=== PATIENT | female | born 1965 | race Caucasian/White ===

== ENCOUNTER 2021-04-05 10:31 | Emergency (ER) | payer OTHER, SELFPAY ==
--- NOTE | ~2021-04-05 | CT_ITS ---
EXAMINATION: CT abdomen pelvis wo con DATE: 04/05/2021 12:30 INDICATION: Right suprapubic pain. TECHNIQUE: Computed tomography (CT) of the abdomen and pelvis was performed without intravenous contr ast. Automated exposure control and iterative reconstruction technique were employed. The dose-length product was 1132.63 mGy-cm. COMPARISON: None. FINDINGS: The visualized portions of the lung bases are clear without pneumonia or pleural effusion. The heart size is normal. No pericardial effusion. The liver and spleen are normal. There are changes of cholecystectomy. The pancreas and right adrenal gland are normal. There is a 10 mm mass in left a drenal gland measuring low-attenuation, consistent with an adenoma. The kidneys are normal. There is no urolithiasis. There are bilateral tubal ligation clips. There are no dilated loops of bowel. The a ppendix is normal. There are no pathologically enlarged lymph nodes. There is no free intraperitoneal fluid. There is mild thoracolumbar spondylosis. IMPRESSION: 1. No etiology for the patient's symptoms. Reviewed, dictated and finalized at location A.
[2021-04-05 11:17] VITALS: BP 138/62; PULSE 90; RESP 16; TEMP 36.4; O2SAT 98
--- NOTE | 2021-04-05 11:23 | ED.GENADULT ---
HPI - General Adult General Chief complaint: Extremity Injury, Lower Stated complaint: R Groin Pain Time Seen by Provider: 04/05/21 11:19 History of Present Illness HPI narrative: Patient is a 55-year-old female who comes to the ED today complaining of pain in right groin/hip area that started yesterday. Patient reports yesterday she was getting up and felt a sudden sharp pain in this area. Is been fairly constant since then. It is made worse whenever she is weightbearing. It is nonradiating. She does not feel a bulge in this area. There is no overlying rash or skin changes. No numbness or tingling. No lower extremity edema. No previous history of similar symptoms. No other symptoms or concerns. Related Data Allergies Allergy/AdvReac Type Severity Reaction Status Date / Time No Known Allergies Allergy Unverified 05/14/19 09:48 Review of Systems Constitutional: Constitutional: Reports as per HPI, Denies fever(s), Denies night sweats and Denies weakness Cardiovascular: Cardiovascular: Denies chest pain, Denies edema, Denies leg edema, Denies dyspnea and Denies orthopnea Respiratory: Respiratory: Denies cough and Denies dyspnea Gastrointestinal: Gastrointestinal: Denies abdominal pain, Denies constipation, Denies diarrhea, Denies nausea and Denies vomiting Comments: See HPI Musculoskeletal: Musculoskeletal: Denies abnormal gait, Denies back pain, Denies numbness and Denies tingling Neurologic: Denies Abnormal speech present, Denies abnormal gait, Denies numbness, Denies tingling and Denies weakness Psychiatric: Psychiatric: Denies homicidal ideation and Denies suicidal ideation Exam Const: General: cooperative, healthy appearing, comfortable, no acute distress, well developed, alert, awake and Physically active Orientation/consciousness: patient oriented x3 Other: Pleasant, well-appearing HENMT: Head: normal to inspection, normocephalic and atraumatic Ears: external ears normal General nose exam: Normal external nose present Eyes: Pupils: Equal, round and reactive pupils present EOM: EOMs intact bilaterally Neck: Neck: normal visual inspection Chest: Chest palpation & inspection: normal inspection of the chest and no tenderness Resp: Effort & Inspection: normal respiratory effort and able to speak in complete sentences Auscultation: clear to auscultation bilaterally Cardio: Rate: regular rate Rhythm: regular rhythm GI: Inspection: normal to inspection GI Palp: Yes abdominal tenderness Other: Tender to palpate over right side suprapubic region. No right lower quadrant tenderness. No tenderness over McBurney's point. : General: Yes no CVA tenderness Back/Spine/Pelvis: Back: no CVA tenderness Skin: General skin exam: normal color and no rashes or lesions noted Lesions: no lesions Neuro: General: patient oriented x3, no focal motor deficits and CN's II-XI intact bilaterally Cranial nerves: Yes Equal, round and reactive pupils present Speech: No Abnormal speech present Extrem: General: normal to inspection and full ROM Other: Full range of motion right lower extremity in all planes. Neurovascular intact throughout. Normal gait. Psych: Appearance: grossly normal and well kempt Mental Status: mental status grossly normal Speech and movement: Normal speech and movement present Affect: normal affect Thought process: Normal thought process present Course Course Emergency Course: Exam consistent with muscular pain. CT done per patient's request which was unremarkable. Urinalysis also done which was unremarkable. Vital Signs Vital signs: Vital Signs Temperature 36.4 C L 04/05/21 11:17 Pulse Rate 90 04/05/21 11:17 Respiratory Rate 16 04/05/21 11:17 Blood Pressure 138/62 04/05/21 11:17 Pulse Oximetry 98 04/05/21 11:17 Temperature 36.4 C L 04/05/21 11:17 Pulse Rate 90 04/05/21 11:17 Respiratory Rate 16 04/05/21 11:17 Blood Pressure 138/62 04/05/21 11:17 Pulse Oximetry
[2021-04-05] MEDS: KETOROLAC 30 MG/ML VIAL (*BKC) IM (12:17)
[2021-04-05 12:43] LABS: Add Urine Microscopic? NO; Appearance Urine Clear (Clear); Bilirubin Urine Negative (Negative); Blood Urine Negative (Negative); Color Urine Straw (Yellow); Glucose Urine UA Negative (Negative); Ketones Urine Negative (Negative); Leukocyte Esterase Ur Negative LEU/UL (Negative); Nitrate Urine Negative (Negative); Protein Urine Negative (Negative); Specific Grav Ur 1.009 (1.001-1.035); Urobilinogen Urine Negative mg/dL (<2.0)
[2021-04-05 13:42] VITALS: BP 140/84; PULSE 69; RESP 16; O2SAT 99
== END 2021-04-05 13:43 | disposition home or self-care (01) ==
PROVIDERS: Physician Assistant Medical; Emergency Provider Emergency Medicine; PCP Family Medicine
DX: R10.30 Lower abdominal pain, unspecified (principal)
CPT/HCPCS: 74176; 81003; 96372; 99284; J1885

== ENCOUNTER 2021-07-24 09:00 | Outpatient (CLI) | payer OTHER, SELFPAY ==
--- NOTE | 2021-07-24 12:00 | NEURO_ITS ---
Impression: # Complains of pain and numbness of right thumb and forearm. # Normal nerve conduction study. # No Carpal Tunnel Syndrome or ulnar neuropathy. # Normal needle/EMG exam. Nerve Conduction Studies Anti Sensory Summary Table Stim Site NR Peak (ms) P-T Amp (?V) Site1 Site2 Delta-P (ms) Dist (cm) Karel (m/s) Right Median Anti Sensory (2-3nd Digit) Wrist 2.7 23.1 Wrist 2-3nd Digit 2.7 14.0 52 Wrist 2.5 53.6 Wrist 2-3nd Digit 2.7 14.0 52 Right Radial Anti Sensory (Base 1st Digit) Wrist 2.3 16.4 Wrist Base 1st Digit 2.3 0.0 Right Ulnar Anti Sensory (5th Digit) Wrist 2.1 15.4 Wrist 5th Digit 2.1 14.0 67 Motor Summary Table Stim Site NR Onset (ms) O-P Amp (mV) Site1 Site2 Delta-0 (ms) Dist (cm) Karel (m/s) Right Median Motor (Abd Poll Brev) Wrist 2.8 5.0 Elbow Wrist 4.5 26.0 58 Elbow 7.3 3.1 Right Ulnar Motor (Abd Dig Minimi) Wrist 2.1 7.0 A Elbow Wrist 4.6 28.0 61 A Elbow 6.7 6.4 F Wave Studies NR F-Lat (ms) L-R F-Lat (ms) Right Median (Mrkrs) (Abd Poll Brev) 26.14 Right Ulnar (Mrkrs) (Abd Dig Min) 24.92 EMG Side Muscle Nerve Root Ins Act Fibs Amp Dur Recrt Comment Right 1stDorInt Ulnar C8-T1 Nml Nml Nml Nml Nml Right Ext Indicis Radial (Post Int) C7-8 Nml Nml Nml Nml Nml Right Ext Digitorum Radial (Post Int) C7-8 Nml Nml Nml Nml Nml Right BrachioRad Radial C5-6 Nml Nml Nml Nml Nml Right PronatorTeres Median C6-7 Nml Nml Nml Nml Nml Right Abd Poll Brev Median C8-T1 Nml Nml Nml Nml Nml MTDD
== END 2021-07-24 09:01 | disposition home or self-care (01) ==
PROVIDERS: PCP Family Medicine; Visit Provider Physician Assistant Surgical
DX: M79.641 Pain in right hand (principal)
CPT/HCPCS: 95886; 95909

== ENCOUNTER → 2022-10-24 16:03 | Outpatient (CLI) | payer OTHER, SELFPAY ==
--- NOTE | ~2022-10-24 | US_ITS ---
EXAMINATION: US carotid duplex BI DATE: 10/24/2022 16:35 INDICATION: Subjective visual disturbance, speech-language deficit, vertigo and disturbance of skin s ensation. TECHNIQUE: Grayscale, color Doppler, and pulsed Doppler images of the cervical carotid arteries were obtained. The degree of vessel stenosis is placed in one of the following categories: normal, <50%, 5 0-69%, >=70% but less than near-occlusion, near-occlusion, or total occlusion. Note that percent sten osis relative to normal distal artery lumen diameter is indirectly measured from velocity measurement s as described by Alexander, et al. Radiology 2003; 229:340-346. COMPARISON: None. FINDINGS: RIGHT: The right common carotid artery (CCA) peak systolic velocity (PSV) is 102 cm/s. The right internal ca rotid artery (ICA) PSV is 100 cm/s. The right ICA end-diastolic velocity (EDV) is 40 cm/s. The right ICA/CCA PSV ratio is 1.6. Grayscale and color Doppler images yield an estimate of <50% diameter reduc tion from plaque in the ICA. The external carotid artery (ECA) PSV is 73 cm/s. There is antegrade arnaud w in the right vertebral artery. LEFT: The left CCA PSV is 142 cm/s. The left ICA PSV is 102 cm/s. The left ICA EDV is 29 cm/s. The left ICA /CCA PSV ratio is 1.2. Grayscale and color Doppler images yield an estimate of <50% diameter reductio n from plaque in the ICA. The ECA PSV is 69 cm/s. There is antegrade flow in the left vertebral arter y. IMPRESSION: 1. <50% stenosis in the right internal carotid artery. 2. <50% stenosis in the left internal carotid artery. Reviewed, dictated and finalized at location A. [employer]
== END ==
PROVIDERS: PCP Family Medicine; Visit Provider Specialist
DX: I25.10 Atherosclerotic heart disease of native coronary artery without angina pectoris (principal); E66.01 Morbid (severe) obesity due to excess calories; I65.29 Occlusion and stenosis of unspecified carotid artery
CPT/HCPCS: 93880

== ENCOUNTER 2024-03-05 15:14 | Outpatient (CLI) | payer OTHER, SELFPAY ==
--- NOTE | ~2024-03-05 | CT_ITS ---
EXAMINATION:CT lung screening DATE: 03/05/2024 15:48 INDICATION: Nicotine dependence, cigarettes, uncomplicated. Current smoker with 30 pack year history. TECHNIQUE: Computed tomography (CT) of the chest was performed without intravenous contrast. Automate d exposure control and iterative reconstruction technique were employed. The dose-length product (DLP ) was 238.78 mGy-cm. COMPARISON: CT abdomen and pelvis 04/05/2021 FINDINGS: There is mild atelectasis bilaterally. No pleural effusion. No pleural effusion. The heart size is normal. There are coronary artery calcifications. No pericardial effusion. There is a small s liding hiatal hernia. There is severe thoracic spondylosis. There is mild chronic anterior wedging of T6 vertebral body. IMPRESSION: 1. Lung-RADS category 1: Negative. Continue annual screening with noncontrast low-dose chest CT in 12 months. Reviewed, dictated and finalized at location E. IMPRESSION: 1. Lung-RADS category 1: Negative. Continue annual screening with noncontrast l ow-dose chest CT in 12 months.
--- NOTE | ~2024-03-05 | CT_ITS ---
EXAMINATION: CT abdomen pelvis w con DATE: 03/05/2024 15:49 INDICATION: Pelvic and perineal pain. TECHNIQUE: Computed tomography (CT) of the abdomen and pelvis was performed with 100 mL Omnipaque 350 intravenous contrast. Automated exposure control and iterative reconstruction technique were employe d. The dose-length product was 1067.10 mGy-cm. COMPARISON: CT abdomen and pelvis 04/05/2021 FINDINGS: The visualized portions of the lung bases demonstrate mild atelectasis. No pleural effusion . The heart size is normal. No pericardial effusion. There is a small sliding hiatal hernia. The live r and spleen are normal. There are changes of cholecystectomy. The pancreas and right adrenal gland a re normal. There is chronic thickening of left adrenal gland, likely benign. The kidneys are normal. There are changes of bilateral tubal ligations. There are no dilated loops of bowel. The appendix is normal. Aortic atherosclerosis is noted. There are no pathologically enlarged lymph nodes. There is n o free intraperitoneal fluid. There is mild thoracic and lumbar spondylosis. IMPRESSION: 1. Small sliding hiatal hernia. Reviewed, dictated and finalized at location E.
== END 2024-03-05 15:15 ==
LOC: MICIMG 15:15
PROVIDERS: PCP Family Medicine; Visit Provider Family Medicine
DX: Z12.2 Encounter for screening for malignant neoplasm of respiratory organs (principal); K44.9 Diaphragmatic hernia without obstruction or gangrene; F17.210 Nicotine dependence, cigarettes, uncomplicated
CPT/HCPCS: 71271; 74177; Q9967

== ENCOUNTER 2024-07-15 15:01 | Outpatient (CLI) | payer OTHER, SELFPAY ==
--- NOTE | ~2024-07-15 | MM_ITS ---
EXAMINATION: MM screening [facility] BI w irma HISTORY: Screening TECHNIQUE: Craniocaudal and mediolateral oblique 3-D tomosynthesis images were obtained and synthetic 2-D images were generated. CAD analysis was submitted and interpreted. COMPARISON: Examination is compared with multiple prior studies, performed most recently 05/05/2019 da ting back to 10/21/2012 BREAST PARENCHYMAL COMPOSITION: There are scattered areas of fibroglandular density. FINDINGS: Punctate calcifications are detected bilaterally, stable and benign in appearance. Stable parenchymal pattern without suspicious microcalcifications, architectural distortion, discret e masses or significant asymmetry. IMPRESSION: 1. No mammographic evidence of malignancy. 2. Recommend routine screening mammography in one year. BI-RADS Category 2: Benign finding(s). Reviewed, dictated and finalized at location A.
== END 2024-07-15 15:02 | disposition home or self-care (01) ==
LOC: MICIMG 15:03
PROVIDERS: PCP Nurse Practitioner Family; Visit Provider Obstetrics & Gynecology
DX: Z12.31 Encounter for screening mammogram for malignant neoplasm of breast (principal)
CPT/HCPCS: 77063; 77067

== ENCOUNTER 2025-04-29 08:06 | Outpatient (CLI) | payer BC, SELFPAY ==
--- NOTE | ~2025-04-29 | CT_ITS ---
CLINICAL INDICATION: Nicotine dependence COMPARISON: 03/05/2024. TECHNIQUE: Multiple contiguous axial images of the chest was performed without the administration of intravenous contrast. This CT examination was performed utilizing dose reduction techniques. DLP: 246 mGy-cm FINDINGS/OBSERVATIONS: LUNG: The lungs are clear. HEART: The heart is of normal size, without pericardial effusion. MEDIASTINUM: No pathologically enlarged or morphologically suspicious lymph nodes are identified within the medias tinum, bilateral axilla, within the soft tissues of the anterior chest wall. SOFT TISSUES OF THE CHEST: Unremarkable. BONES OF THE CHEST: No acute fracture. No lytic or blastic lesions are identified. UPPER ABDOMEN: The gallbladder is absent. IMPRESSION: Lung-RADS category 1: Negative. Continue annual screening with noncontrast low-dose chest CT in 12 mo nths. Probability of Malignancy < 1% Estimated Population Prevalence 90% Reviewed, dictated and finalized at location A. IMPRESSION: Lung-RADS category 1: Negative. Continue annual screening with noncontrast low- dose chest CT in 12 months. Probability of Malignancy < 1% Estimated Population Prevalence 90%
== END 2025-04-29 08:07 | disposition home or self-care (01) ==
LOC: MICIMG 08:06
PROVIDERS: PCP Family Medicine; Visit Provider Family Medicine
DX: Z12.2 Encounter for screening for malignant neoplasm of respiratory organs (principal); Z87.891 Personal history of nicotine dependence
CPT/HCPCS: 71271

== ENCOUNTER 2025-07-26 00:10 | Day surgery (SDC) | payer BC, SELFPAY ==
[2025-07-15 14:52] VITALS: BMI 40.1
--- OUTSIDE RECORDS SUMMARY | 2025-07-26 00:13 | XMS_ITS | Clinical Summary ---
Author Organization [facility] Address [facility] [place] [address] Care Team Providers Care Field Servicer Name Role Phone Oralia Schwarz NP Primary Care Provider [phone] Allergies No known active allergies Medications progesterone (PROMETRIUM) 200 MG capsule Take 1 capsule (200 mg total) by mouth nightly at bedtime. Active estradiol (ESTRACE) 1 MG tablet Take 0.5 tablets (0.5 mg total) by mouth daily. 4 Active ibuprofen (MOTRIN) 200 MG tablet Take by mouth every 6 (six) hours as needed. Active rosuvastatin (CRESTOR) 10 MG tabletIndications:M ixed hyperlipidemia Take 1 tablet (10 mg total) by mouth daily. 90 tablet 1 5 10/11/19 26 Active omeprazole (PRILOSEC) 20 MG capsuleIndications: Dysphagia, unspecified type,Gastroesophage al reflux disease, unspecified whether esophagitis present Take 1 capsule (20 mg total) by mouth daily. 90 capsule 1 5 Active Active Problems Problem Noted Date Diagnosed Date Vaping nicotine dependence, non-tobacco product 04/14/2025 Overview (04/14/2025): 04/14/2025: She reports she stopped smoking cigarettes 03/27/2025. She reports she started vaping nicotine product and cartridge last her 2 weeks. Assessment & Plan (04/14/2025 9:21 AM CDT): See under nicotine dependence, cigarettes, in remission Depression screening negative 04/14/2025 Overview (04/14/2025): PHQ-9: 04/14/2025 8:33 AM 01/27/2025 3:11 PM PHQ2/PHQ 9 DEPRESSION SCREEN QUESTIONAIRE Little interest or pleasure in doing things Not at all Not at all Feeling down, depressed, or hopeless Not at all Not at all Patient Health Questionnaire-2 Score 0 0 Trouble falling or staying asleep, or sleeping too much Not at all Feeling tired or having little energy Several days Poor appetite or overeating Several days Feeling bad about yourself - or that you are a failure or have let yourself or your family down Not at all Trouble concentrating on things, such as reading the newspaper or watching television Not at all Moving or speaking so slowly that other people could have noticed? Or the opposite - being so fidgety or restless that you have been moving around a lot more than usual. Not at all Thoughts that you would be better off or hurting yourself in some way Not at all Patient Health Questionnaire-9 Score 2 How difficult have these problems made it for you to do your work, take care of things at home, or get along with other people? Not difficult at all Not difficult at all Assessment & Plan (04/14/2025 9:23 AM CDT): Depression screen negative. Discussed with patient. Need for gqsiyrjjrq-gegusco-vtoupaowp (Tdap) vac cine 04/14/2025 Assessment & Plan (04/14/2025 9:20 AM CDT): Patient due for Tdap booster. She is agreeable to receive. She was given [facility] V[facility] to review. Wears prescription eyeglasses 04/14/2025 Overview (04/14/2025): 04/14/2025: She reports she wears eyeglasses. Denies wearing contacts. Seborrheic keratosis 04/14/2025 Overview (04/14/2025): 04/14/2025: She reports she sees dermatology annually. Assessment & Plan (04/14/2025 9:29 AM CDT): Multiple seborrheic keratosis noted on patient's neck. They are not inflamed or irritated. No treatment necessary. Anterior cervical adenopathy 04/14/2025 Assessment & Plan (04/14/2025 9:30 AM CDT): Anterior cervical adenopathy noted on physical exam. Suspect reactive. Continue to monitor. Thoracic spondylosis 03/29/2025 Overview (03/29/2025): Severe thoracic spondylosis noted on low-dose CT scan 03/05/2024 Lack of immunity to hepatiti s B virus demonstrated by serologic test 03/17/2025 Overview (03/29/2025): Component Ref Range & Units 03/16/25 0704 HEP B SURFACE AB >9.9 MIU/ML <3.1 Low Comment: INDIVIDUAL IS CONSIDERED NOT IMMUNE TO HBV INFECTION. Resulting Agency [facility] Need for prophylactic vaccination against hepati tis B virus 03/17/2025 Overview (03/29/2025): Component Ref Range & Units 03/16/25 0704 HEP B SURFACE AB >9.9 MIU/ML <3.1 Low Comment: INDIVIDUAL IS CONSIDERED NOT IMMUNE TO HBV INFECTION. Resulting Agency [facility] Assessment & Plan (04/14/2025 9:20 AM CDT): Labs returned showing patient does not have immunity to hepatitis B virus. Recommend vaccination with 3 dose vaccine series. Patient is agreeable. Patient was given [facility] V[facility] to review. She is return in 4 weeks for nurse visit to have second dose of hepatitis B vaccine and at least 6 months from now for third dose. Vitamin D insufficiency 03/17/2025 Overview (03/29/2025): Component Ref Range & Units 03/16/25 0704 VITAMIN D 25 HYDROXY TOTAL S/P/B 30 - 100 NG/ML 26.5 Low Comment: DEFICIENT <20 INSUFFICIENT 20-30 SUFFICIENT 30-100 Resulting Agency [facility] Assessment & Plan (04/14/2025 9:33 AM CDT): Patient counseled regarding calcium and vitamin D supplementation as she is postmenopausal. Recommended take vitamin D3 1000 IU daily. Subclinical hypothyroidism 03/17/2025 Overview (03/29/2025): Component Ref Range & Units 03/16/25 0704 TSH 0.358 - 3.740 uIU/ML 3.757 High Resulting Agency [facility] Component Ref Range & Units 03/16/25 0704 FREE T4 0.76 - 1.46 NG/DL 0.82 Resulting Agency [facility] Mixed hyperlipidemia 03/17/2025 Overview (04/14/2025): 03/17/2025: Patient reports taking rosuvastatin 5 mg daily Component Ref Range & Units 03/16/25 0704 CHOLESTEROL <200 MG/DL 168 TRIGLYCERIDES <150 MG/DL 146 HDL >40 MG/DL 36 Low LDL-C <100 MG/DL 103 High VLDL CALCULATION 5 - 28 MG/DL 29 High CHOL/HDL RATIO 0.0 - 4.0 4.7 High LDL/HDL 0.41 - 2.13 2.9 High NON HDL CHOLESTEROL <140 MG/DL 132 Resulting Agency [facility] Assessment & Plan (04/14/2025 9:23 AM CDT): Increase to rosuvastatin 10 mg daily. The 10-year ASCVD risk score (Ana María DK, et al., 2019) is: 2.6% Values used to calculate the score: Age: 59 years Sex: Female Is Non- : No Diabetic: No Tobacco smoker: No Systolic Blood Pressure: 121 mmHg Is BP treated: No HDL Cholesterol: 36 MG/DL Total Cholesterol: 168 MG/DL Elevated fasting glucose 03/17/2025 Overview (03/29/2025): Component Ref Range & Units 03/16/25 0704 SODIUM S/P/B 136 - 145 MMOL/L 142 POTASSIUM S/P/B 3.5 - 5.1 MMOL/L 4.5 CHLORIDE S/P/B 98 - 107 MMOL/L 107 CO2 21 - 32 MMOL/L 30.2 GLUCOSE 70 - 99 MG/DL 100 High BUN 7 - 18 MG/DL 8 CREATININE S/P/B 0.55 - 1.02 MG/DL 0.71 CALCIUM S/P/B 8.4 - 10.5 MG/DL 9.4 BILIRUBIN TOTAL S/P/B 0.2 - 1.0 MG/DL 0.3 ALKALINE PHOSPHATASE S/P/B 46 - 118 U/L 89 AST 15 - 37 U/L 17 ALT 14 - 59 U/L 20 TOTAL PROTEIN S/P/B 6.4 - 8.2 G/DL 6.8 ALBUMIN S/P/B 3.4 - 5.0 G/DL 3.5 ANION GAP 5 - 15 MMOL/L 4.8 Low Comment: REFERENCE RANGE NOT ESTABLISHED OSMOLALITY (CALC) MOSM/KG 292 Comment: REFERENCE RANGE NOT ESTABLISHED GFR ESTIMATE >90 ML/MIN/1.73 M2 >90 Assessment & Plan (04/14/2025 9:39 AM CDT): Hemoglobin A1c ordered and completed in office and returned within normal limits at 5.6%. Hormone replacement therapy (postmenopausal) Overview (04/14/2025): Initial visit 01/27/2025: Patient is following with CHIEF JAILER Dr. Leobardo Smith MD. She is currently taking estradiol 0.5 mg daily and progesterone 200 mg nightly. She reports the medication has helped a lot. Assessment & Plan (04/14/2025 9:24 AM CDT): Continue estradiol and progesterone per CHIEF JAILER Dr. Leobardo Smith Assessment & Plan (01/27/2025 5:38 PM CDT): Continue estradiol and progesterone per Dr. Leobardo Smith Primary osteoarthritis involving multiple joints 01/27/2025 Overview (01/27/2025): Initial visit 01/27/2025: Per chart review, patient saw rheumatology 04/15/2024 was noted to have osteoarthritis and no active rheumatologic disease and there was no instruction for her to return. She reports she follows with orthopedic surgery Amadeo Thacker PA-C and has received joint injections previously. She reports she generally takes ibuprofen for pain which is helpful. Colon cancer screening 01/27/2025 Overview (04/14/2025): Initial visit 01/27/2025: She reports she supposed to get colonoscopy every 3 years however she is unsure of date of last colonoscopy. She reports she had it at [facility]. 03/29/2025: Last colonoscopy on record 2019 with Johny Jackson MD and based on report patient was to return in 5 to 10 years pending pathology result. 04/14/2025: Patient reports she was requested to return in 3 years for repeat screening colonoscopy. She denies any changes in her bowel habits. She reports she has bowel movements twice weekly but has had for years. Assessment & Plan (04/14/2025 9:25 AM CDT): Referral placed to [place] for GI for repeat screening colonoscopy. Patient may be overdue. Assessment & Plan (01/27/2025 5:40 PM CDT): Requesting records from [facility]. Will place referral after records are received. Screening for lung cancer 01/27/2025 Overview (03/29/2025): Initial visit 01/27/2025: She reports her previous PCP Dr. Ava Paris Lung cancer screening 05/07/2022 showed mild centrilobular emphysema, coronary artery disease, postoperative changes of cholecystectomy, fecal retention in the colon suggestive of constipation Lung RADS 1 recommended to continue annual screening in 12 months. Patient reports she has had more recent CT scan than 2021. 03/29/2025: Last low-dose CT scan 03/05/2024. Results lung RADS category 1. Assessment & Plan (04/14/2025 9:24 AM CDT): Due for repeat low-dose CT scan. Patient is agreeable. Ordered to [facility] per patient request. Patient counseled regarding continued cigarette smoking cessation and smoking cessation for vaping. Assessment & Plan (01/27/2025 5:39 PM CDT): Requesting records from Dr. Ava Paris's office Nicotine dependence, cigarettes, in remission Overview (04/14/2025): Initial visit 01/27/2025: She reports she is been smoking approximately 3/4 pack per day for at least 30 years. She reports she has tried to quit previously using medication such as Chantix which was helpful. She reports she also tried Wellbutrin however she cried a lot. She reports currently she is not interested in smoking cessation. She reports she has a starter pack of Chantix at home. 04/14/2025: She reports she stopped smoking cigarettes 03/27/2025. She reports she started vaping nicotine product and cartridge last her 2 weeks. Assessment & Plan (04/14/2025 9:21 AM CDT): Discussed smoking and smoking cessation with patient. Low-dose CT scan ordered for patient to complete. Assessment & Plan (01/27/2025 5:45 PM CDT): Requesting records regarding patient's most recent lung cancer screening with low-dose CT scan. Patient needs to be screened annually. Hiatal hernia 01/27/2025 Overview (03/29/2025): Initial visit 01/27/2025: She reports she had a CT exam and was told that she has a hiatal hernia. She reports that she generally does not have too many concerns however sometimes does experience difficulty swallowing however it does not happen often. She reports when she experiences some of the symptoms sometimes she will take mvab-ksk-ijvfooy medications. 03/29/2025: Low-dose CT scan for lung cancer 03/05/2024 screening showed small sliding hiatal hernia. Assessment & Plan (01/27/2025 5:44 PM CDT): Hiatal hernia appears to be incidentally noted. We are requesting records from patient's previous PCP regarding imaging study. Discussed with patient that as she is fairly asymptomatic, that this does not likely warrant any specific therapy at this time. Class 2 obesity without seri ous comorbidity with body mass index (BMI) of 39.0 to 39.9 in adult, unspecified obesity type 01/27/2025 Overview (04/14/2025): 04/14/2025: She reports her weight has been stable and between 225 and 235 pounds for the last 10 or so years. Assessment & Plan (04/14/2025 9:21 AM CDT): Weight has decreased since last visit. Patient counseled regarding diet and exercise. S/P cholecystectomy 01/27/2025 Overview (01/27/2025): Initial visit 01/27/2025: She reports she previously has had laparoscopic cholecystectomy. Chronic constipation 01/27/2025 Overview (01/27/2025): Initial visit 01/27/2025: She reports she takes stool softeners without stimulant nightly to help promote bowel movement. History of bronchitis 01/27/2025 Overview (01/27/2025): Initial visit 01/27/2025: She reports she has bronchitis typically yearly. She reports she generally can self treat at home and responds and improves. Assessment & Plan (01/27/2025 5:55 PM CDT): Discussed with patient that given her smoking history and episodes of bronchitis, I would like to consider having pulmonary function testing completed in the future to evaluate her lung function. Will discuss at another time. Dizzy spells 01/27/2025 Overview (01/27/2025): Initial visit 01/27/2025: She reports she occasionally experiences dizzy spells and she had one most recently on Friday. She denies falling or feeling off balance like she may fall. She is unsure how frequently these occur. She denies currently feeling dizzy. Assessment & Plan (01/27/2025 5:54 PM CDT): Discussed with patient that I would like her to be mindful of when this occurs and take note. Discussed with patient that her blood pressure is on the low end and if she continues to have these dizzy spells, I would like to have orthostatic vital signs performed. I would also like to investigate this further in the future when there is more time allotted. Lumbar spondylosis 11/04/2024 Overview (01/27/2025): Initial visit 01/27/2025: She reports she has chronic low back pain. Arteriosclerosis of coronary artery 06/26/2022 Overview (04/14/2025): Initial visit 01/27/2025: She denies previous cardiovascular event however reports plaque was noticed on imaging. She was placed on rosuvastatin 5 mg daily which she takes every day. She reports she has previously seen cardiology and had stress test which she reports she passed. Stress test was completed 10/10/2022. She reports they told her to take a baby aspirin daily however she often forgets. Resolved Problems Problem Noted Date Diagnosed Date Resolved Date Cervical cancer screening 01/27/2025 Overview (03/29/2025): Last Pap 12/14/[address] Leobardo Smith. Cotesting negative. Next Pap due December 2029. Assessment & Plan (01/27/2025 5:37 PM CDT): Requesting records from Dr. Leobardo Smith. Fracture of lower leg 01/27/20252024 Closed fracture of metatarsal bone 01/27/2025 01/27/2025 Closed fracture of lateral malleolus 01/27/2025 01/27/2025 Encounters Date Type Department Care Team Description 06/17/2025 8:00 AM CDT [facility] [place] [address] [address] [facility] [address] [place] [address] Oralia Schwarz NP Hyperlipidemia (Transfer patient); Throat Problem 06/17/2025 Travel 05/12/2025 4:20 PM CDT Allied Health[facility] [place] [address] [address] [facility] [address] [place] [address] Oralia Schwarz, SPEEDER TENDER Allied Health Visit (Pt here for 2nd HEP B vaccine. /) 05/12/2025 Travel 05/09/2025 MyChart Message Enc [facility] [place] [address] [place] [address] Mikayla Flores, Lung cancer screening 04/29/2025 Scan HEALTH INFO SRVCS Scanned, Doc [facility] CT (SCAN) from Last 3 Months Immunizations Immunization Administration Dates Next Due Hepatitis B (Recombivax Hb 10 Mcg) 05/12/2025, Shingrix 02/10/2025,12/10/2024 Tdap (Adacel) 04/14/2025 Tdap (Generic) 02/22/2015 Family History Medical History Relation Comments No Known Problems Brother No Known Problems Daughter No Known Problems Father Arthritis Mother Heart Attack Mother Heart Disease Mother Hypertension Mother Other cancer Mother gallbladder No Known Problems Son Relation Status Comments Brother Alive Daughter Alive Father Half-sister 1 Alive Half-sister 2 Alive Half-sister 3 Mother Son Alive Social History Tobacco Use Types Packs/Day Years Used Date Smoking Tobacco: Former Cigarettes 0.7 30.1 0 03/06/1995 - 03/27/2025 Smokeless Tobacco: Never Tobacco Cessation:Counseling Given: No Comments:Approximate start date of smoking Alcohol Use Standard Drinks/Week Comments Yes 5 (1 standard drink = 0.6 oz pur e alcohol) PHQ-2 Answer Date Recorded Patient Health Questionnaire-2 Score 0 04/14/2025 Comments Unknown Sex and Gender Information Value Date Recorded Sex Assigned at Female 01/24/2025 1:42 PM CDT Legal Sex Female 11:18 AM CDT Gender Identity Female 01/24/2025 1:42 PM CDT Sexual Orientation Not on file Last Filed Vital Signs Vital Sign Reading Time Taken Comments Blood Pressure 125/87 06/17/2025 8:08 AM CDT Pulse 73 06/17/2025 8:08 AM CDT Temperature 36.6 C (97.8 F) 06/17/2025 8:08 AM CDT Respiratory Rate 18 06/17/2025 8:08 AM CDT Oxygen Saturation 99% 06/17/2025 8:08 AM CDT Inhaled Oxygen Concentration - - Weight 106.5 kg (234 lb 12.8 oz) 06/17/2025 8:08 AM CDT Height 162.6 cm (5' 4) 06/17/2025 8:08 AM CDT Body Mass Index 40.3 06/17/2025 8:08 AM CDT Plan of Treatment Upcoming Encounters Date Type Department Care Team (Late st Contact Info) Description 10/14/2025 8:00 AM PARKING PATROLLER Office Visit [facility] [place] [address] [place] [address] Oralia Schwarz, SPEEDER TENDER [address] [place] [address] Health Maintenance Due Date Last Done Comments Cervical Cancer Screening Pa p Smear (Age 30 to 64) Every 3 Years 1967 Lung Cancer Screening 12/29/2017 Colorectal Cancer Screening Colonoscopy (10 Years) 05/14/2024 05/14/2019, 05/14/2019 COVID-19 Vaccine (3 - 2024-2 6 season) 2025 01/05/2021, 12/17/2020 Influenza Adult (#1) 2025 Mammogram Screening 07/15/2025 07/15/2024 Pneumococcal Vaccine: 50+ Years (1 of 2 - PCV) 01/30/2026 Postponed from 12/05 (Patient/Guardian Refusal) Annual Physical 04/14/2026 04/14/2025 Cervical Cancer Screening Pa p with HPV Testing (Age 30 to 64) Every 5 Years 12/14/2029 12/14/2024 Cervical Cancer Screening with HPV 12/14/2029 DTaP, Tdap and Td Vaccines ( 3 - Td or Tdap) 04/14/2035 04/14/2025, 02/22/2015 Zoster Vaccines Completed 02/10/2025, 12/10/2024 Hepatitis C Completed 03/16/2025 PHQ-2 (Physician [place]) Completed 04/14/2025 Hepatitis B Vaccines Completed 05/12/2025, 04/14/2025 Hepatitis A Vaccines Aged Out No long er eligible based on patient's age to complete this topic Meningococcal B Vaccine Aged Out No l onger eligible based on patient's age to complete this topic Meningococcal Vaccine Aged Out No jason leyla eligible based on patient's age to complete this topic RSV Immunizations Under 20 Months Aged Out No longer eligible b ased on patient's age to complete this topic Procedures Procedure Name Priority Date/Time Associated Diagnosis Comments CT GENERIC 04/29/2025 HEPATITIS C ANTIBODY Routine 03/16/2025 7:04 AM CDT Encounter for hepatitis C screening test for low risk patient OUTSIDE CYTOPATH CERV/VAG INTERPRET (PAP) 12/14/2024 MAMMOGRAM GENERIC (SCAN ORDER) 07/15/2024 COLONOSCOPY GENERIC (SCAN ORDER) 05/14/2019 from Last 3 Months or Most Recently Relevant to Health Maintenance Results * CT GENERIC (04/29/2025) Anatomical Region Laterality Modality Other 04/29/2025 [facility] Scanned SCANNING Final Resu lt * HEPATITIS C ANTIBODY (03/16/2025 7:04 AM CDT) HEPATITIS C AB NON-REACTI VE NON-REACT TWAN 03/16/2025 6:28 PM CDT [facility] Comment: ANTIBODIES TO HCV NOT DETECTED. DOES NOT EXCLUDE THE POSSIBILITY OF EXPOSURE TO HCV. 03/16/2025 7:04 AM CDT Mikayla Flores DO LABORATORY Final Result [facility] [address] [place] [address], [id number] * PAP SMEAR WITH HPV (12/14/2024) 12/14/2024 [facility] Scanned SCANNING Final Resu lt * MAMMOGRAM GENERIC (SCAN ORDER) (07/15/2024) Anatomical Region Laterality Modality Other 07/15/2024 [email or web address] Scanned SCANNING Final Resu lt * COLONOSCOPY GENERIC (SCAN ORDER) (05/14/2019) 05/14/2019 [facility] Scanned SCANNING Final Resu lt from Last 3 Months or Most Recently Relevant to Health Maintenance Insurance [facility] Care Teams Field Servicer Relationship Specialty Start Date End Date Oralia Schwarz NP [address] [place] [address] PCP - General NURSE PRACTITIONER 05/31/25
--- OUTSIDE RECORDS SUMMARY | 2025-07-26 00:13 | XMS_ITS | Patient Health Record ---
Author Organization [facility] Address [address] [place], [place] [id number] Care Team Providers Care Brick Baker Name Role Phone LEOARABELLA COATES Unavailable [phone] Ava Prais Unavailable Unavailable Reason For Referral No Information Plan Of Treatment No Information Insurance Providers Payer Name Payer Address Payer Phone Subscriber Number Group Number Insured Name Patient Relationship to Insured Coverage Start Date Coverage End Date [facility] [address] [address] [place] [id number] YINKA HILL Self - patient is the insured
--- OUTSIDE RECORDS SUMMARY | 2025-07-26 00:13 | XMS_ITS | Encounter Summary ---
Author Organization [facility] Address [facility] [place] [address] Care Team Providers Care Stapler Hand Name Role Phone Mikayla Flores DO Primary Care Provider Karen Ramirez MD Primary Care Provider + Oralia Schwarz NP Primary Care Provider [phone] Encounter Details Date Type Department Care Team (Latest Contact Info) Description 05/09/2025 [employer] Message Enc [address] [place], [place] [id number] Mikayla Flores DO Lung cancer screening Social History Tobacco Use Types Packs/Day Years Used Date Smoking Tobacco: Former Cigarettes 0.7 30.1 0 03/06/1995 - 03/27/2025 Smokeless Tobacco: Never Comments:Approximate start d ate of smoking Alcohol Use Standard Drinks/Week Comments Yes 5 (1 standard drink = 0.6 oz pur e alcohol) PHQ-2 Answer Date Recorded Patient Health Questionnaire-2 Score 0 04/14/2025 Comments Unknown Sex and Gender Information Value Date Recorded Sex Assigned at Female 01/24/2025 1:42 PM CDT Legal Sex Female 11:18 AM CDT Gender Identity Female 01/24/2025 1:42 PM CDT Sexual Orientation Not on file documented as of this encounter Plan of Treatment Upcoming Encounters Date Type Department Care Team (Late st Contact Info) Description 10/14/2025 8:00 AM ELECTRICIAN MAINTENANCE [facility] [place] [address] [facility] [address] [place] [address] Oralia Schwarz, COMPOSITION MIXER [address] [place] [address] documented as of this encounter Visit Diagnoses Not on filedocumented in this encounter Additional Health Concerns Assessment Noted Time PHQ-9 Depression Total Score: 2 04/14/20 25 8:33 AM CDT documented as of this encounter Care Teams Stapler Hand Relationship Specialty Start Date End Date Mikayla Flores DO PCP - General FAMILY PRACTICE 01/04/25 05/29/25 Karen Diaz MD [address] [place] [id number] PCP - General FAMILY PRACTICE 05/30/25 05/30/25 Oralia Schwarz, PATRICK [address] [place] [address] PCP - General NURSE PRACTITIONER 05/31/25 documented as of this encounter
--- OUTSIDE RECORDS SUMMARY | 2025-07-26 00:13 | XMS_ITS | Clinical Summary ---
Author Organization [facility] Address [address] [place] [id number] Care Team Providers Care Airline Dispatcher Name Role Phone Ava Paris MD Primary Care Provider + Allergies No known active allergies Medications ibuprofen (ADVIL,MOTRIN) 200 mg tab/cap Take by mouth every 6 (six) hours as needed Active rosuvastatin (CRESTOR) 5 mg tablet Take 1 tablet (5 mg total) by mouth daily 30 tablet 11 10/10/2022 Active estradioL (ESTRACE) 1 mg tablet Take 0.5 tablets (0.5 mg total) by mouth daily 03/10/2024 Active progesterone (PROMETRIUM) 200 mg capsule Take 1 capsule (200 mg total) by mouth daily 03/10/2024 Active Active Problems Problem Noted Date Diagnosed Date Coronary artery disease invo lving [place] coronary artery of [place] heart without angina pectoris 07/31/2022 Morbid (severe) obesity due to excess calories 1 Surgical History Surgery Date Site/Laterality Comments HERNIA REPAIR SECTION BLADDER SURGERY Medical History Medical History Date Comments Coronary arteriosclerosis Family History Medical History Relation Name Comments Heart attack Mother Relation Name Status Comments Father Mother Social History Tobacco Use Types Packs/Day Years Used Date Smoking Tobacco: Every Day Cigarettes Tobacco Cessation:Ready to Q uit: Not Asked; Counseling Given: Not Answered AUDIT-C Answer Date Recorded Q1: How often do you have a drink containing alc ohol? 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 Gender Identity Not on file Sexual Orientation Not on file Obstetrics History Last Filed Vital Signs Vital Sign Reading Time Taken Comments Blood Pressure 127/78 04/15/2024 3:20 PM CDT Pulse 74 04/15/2024 3:20 PM CDT Temperature 36.8 C (98.2 F) 04/15/2024 3:20 PM CDT Respiratory Rate - - Oxygen Saturation 99% 04/15/2024 3:20 PM CDT Inhaled Oxygen Concentration - - Weight 101.6 kg (224 lb) 04/15/2024 3:20 PM CDT Height 162.6 cm (5' 4) 04/15/2024 3:20 PM CDT Body Mass Index 38.45 04/15/2024 3:20 PM CDT Plan of Treatment Health Maintenance Due Date Last Done Comments Breast Cancer Screening-Mammogram 1965 Cervical Cancer Screening 1965 Colon Cancer Screening-Colonoscopy 1965 Depression Screening 1967 Hepatitis C Screening 1965 Hepatitis B Screening 12/29/1985 Regular Well Visit/Exam 18-64 12/29/1985 Pneumococcal vaccine <65 (1 of 2 - PCV) 12/29/1986 Zoster Vaccine (1 of 2) 12/29/2017 DTaP/Tdap/Td Vaccine (2 - Td or Tdap) 02/22/2025 Covid-19 Vaccine ( - season) 2025 10/10/2021, 01/05/2021, 12/17/2020 Influenza Vaccine (#1) 2025 Insurance [facility] CHOICE PLUS [facility] CHOICE PLUS [facility] CHOICE PLUS Care Teams Airline Dispatcher Relationship Specialty Start Date End Date Ava Paris MD [address] [place] [address] [address]O [address] [place] [id number] PCP - General Family Medicine 10/10/22
--- OUTSIDE RECORDS SUMMARY | 2025-07-26 00:13 | XMS_ITS | Clinical Summary ---
Author Organization [facility] Address [address] [place] [address] Care Team Providers Care Cabinet Abrasive Sandblaster Name Role Phone Kenn Watkins MD Primary Care Provider [phone] Source Comments [facility],non-owned Affiliates and Associated Physician Practices is amultiple site organization consisting of ambulatory clinics and hospital sitesin [place], [place], [place] and [place]. This disclosure is being madepursuant to the Care Everywhere program and may not contain all information available regarding this patient. 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 Gender Identity Not on file Sexual Orientation Not on file Plan of Treatment Health Maintenance Due Date Last Done Comments COLOGUARD (AGES 45-75) - COL ON CA SCREENING 1967 COLON MONITORING 1967 COLONOSCOPY - COLON CA SCREENING 1967 CT COLONOGRAPHY - COLON CA SCREENING 1967 Colorectal Cancer Screening 1967 FIT - COLON CA SCREENING 1967 FLEX SIG - COLON CA SCREENING 1967 LIPID TESTING 1967 MAMMOGRAM 1967 HIV SCREENING 12/29/1982 HEPATITIS C SCREENING 12/25/1985 DTAP/TDAP/TD VACCINES (1 - Tdap) 12/29/1986 HEPATITIS B VACCINE (1 of 3 - 19+ 3-dose series) 12/29/1986 PNEUMOCOCCAL VACCINE 50+ (1 of 1 - PCV) 12/29/2017 ZOSTER VACCINE (1 of 2) 12/29/2017 DEPRESSION SCREENING 10/06/2024 COVID-19 VACCINE ( - 2023-2 5 season) 2025 INFLUENZA VACCINE (#1) 2025 HIB VACCINE Aged Out No longer eligi ble based on patient's age to complete this topic HPV VACCINE Aged Out No longer eligi ble based on patient's age to complete this topic MENINGOCOCCAL (Group B) VACC INE SHARED DECISION-MAKING Aged Out No longer eligibl e based on patient's age to complete this topic MENINGOCOCCAL GROUPS A/C/Y/W VACCINE Aged Out No longer eligible b ased on patient's age to complete this topic Insurance [employer] Care Teams Cabinet Abrasive Sandblaster Relationship Specialty Start Date End Date Kenn Watkins MD PCP - General 05/18/19
[2025-07-26 12:20] VITALS: BMI 40.1
[2025-07-26] MEDS: SIMETHICONE ORAL SUSPENSION 20 MG/0.3 ML 30 ML BOTTLE 1.8 ML PO (12:34)
[2025-07-26 12:35] VITALS: BP 131/74; PULSE 72; RESP 18; TEMP 36.1; O2SAT 99
[2025-07-26] MEDS: LACTATED RINGERS 1,000 ML 30 ML IV CONT (12:35)
--- NOTE | 2025-07-26 13:08 | WPDANESEPPF ---
Anes - Initial Pre Proc Eval Procedure: Operation Date: 07/26/25 13:30 Proposed Procedures p EGD & Screening Colonoscopy - Seymour Hodge MD Date/Time: 07/26/25 13:08 Surgeon: Seymour Hodge MD Pre Op Diagnosis: Personal history of colon polyps, unspecified,GERD Patient Data Age: 59 Gender: F Height: 1.63 m Weight: 106.2 kg Last Vital Signs Temp 36.1 C L 07/26/25 12:35 Pulse 72 07/26/25 12:35 Resp 18 07/26/25 12:35 BP 131/74 07/26/25 12:35 Pulse Ox 99 07/26/25 12:35 O2 Del Method Room Air 07/26/25 12:35 Allergies Allergy/AdvReac Type Severity Reaction Status Date / Time No Known Allergies Allergy Verified 07/15/25 14:51 Home Medications ?Medication ?Instructions ?Recorded ?Confirmed ?Type rosuvastatin 5 mg tablet 5 mg PO DAILY 03/10/24 07/26/25 History estradiol 1 mg tablet 0.5 mg (1/2 x 1 mg) PO DAILY #90 12/14/24 07/26/25 Rx tabs progesterone micronized 200 mg 200 mg PO QHS 90 days #90 caps 05/30/25 07/26/25 Rx capsule (Prometrium) omeprazole 20 mg capsule,delayed 20 mg PO DAILY 07/15/25 07/26/25 History release Patient hx anesthesia problems: none Family hx anesthesia problems: none Results Review: All pre-operative results and documents have been reviewed as part of the pre-operative evaluation. [facility] Past Medical History Medical History Screening mammogram, encounter for Encounter for gynecological examination Dizziness GERD (gastroesophageal reflux disease) Bronchitis Anxiety Femoral hernia of right side repair x 2 Surgical History Surgical History History of bladder surgery bladder sling H/O colonoscopy (05/14/19) 4 mm sessile serrated polyp Hx of cholecystectomy (~2004) Delivery by section Family History Family History Mother Heart disease Acute myocardial infarction, Onset Age: 50 Gallbladder cancer Liver cancer Sibling Acute myocardial infarction sister early 50's heavy drug user Social History Social History Smoking status: Never smoker Tobacco type: cigarettes Second hand tobacco smoke exposure: Yes Alcohol intake: current Alcohol use details: occasional Substance use: current Substance use type: marijuana Other substance usage details: edibles Do You Feel Safe in your Home?: Yes Lack of Transportation: No Lack of Food: Never True Current Housing: I Have Housing Concerned About Future Housing: No Difficulty Paying Gas/Electric Bills: No Difficulty Paying for Meds: No Currently Unemployed: No Education: Associate Degree Difficulty w/ Childcare or Family Care: No Living arrangements: alone Additional living arrangements comments: Occupation/Education: occupation 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 Gender identity (if verbalized by the patient): Female Sexual Orientation (if Verbalized by the Patient): Straight or Heterosexual Anes - Eval Final PreProcedure Day of Procedure 07/26/25 13:08 Patient weight: morbidly obese Heart: regular rate and rhythm Lungs: clear to auscultation Airway: Mallampati scale class II Neurological: alert and oriented Last oral intake: >/= 8 hours ASA classification: III Emergent: no Anesthetic plan: proceed Anesthesia type and monitoring: general GIVS and standard monitoring Results Review: All pre-operative results and documents have been reviewed as part of the pre-operative evaluation. Informed Consent: The patient's anesthetic plan and its attendant risks and benefits were discussed with the patient/family/POA. Questions were solicited and answers provided to the satisfaction of the patient/family/POA.
--- NOTE | 2025-07-26 13:29 | PM.IMHP ---
H&P: HPI History of Present Illness Date/Time: 07/26/25 13:29 Chief Complaint: Dysphagia-history of colon polyps Narrative: The patient has been experiencing episodes of dysphagia to solid food for the past 6 months. Approximately 1 month ago, she had a near food impaction episode, lasting almost 24 hours with a sensation of food bolus esophagus which eventually passed. She has chronic heartburn which has never received treatment however since she is taking omeprazole on a daily basis she no longer has symptoms of acid reflux. In addition she has a history of colonic polyps and is due for her surveillance colonoscopy, and will perform EGD in the same session for the evaluation of dysphagia. Review of Systems Review of Systems: All systems reviewed & are unremarkable except as noted in HPI and below PMFSH Past Medical History Medical History Screening mammogram, encounter for Encounter for gynecological examination Dizziness GERD (gastroesophageal reflux disease) Bronchitis Anxiety Femoral hernia of right side repair x 2 Surgical History Surgical History History of bladder surgery bladder sling H/O colonoscopy (05/14/19) 4 mm sessile serrated polyp Hx of cholecystectomy (~2004) Delivery by section Family History Family History Mother Heart disease Acute myocardial infarction, Onset Age: 50 Gallbladder cancer Liver cancer Sibling Acute myocardial infarction sister early 50's heavy drug user Social History Social History Smoking status: Never smoker Tobacco type: cigarettes Second hand tobacco smoke exposure: Yes Alcohol intake: current Alcohol use details: occasional Substance use: current Substance use type: marijuana Other substance usage details: edibles Do You Feel Safe in your Home?: Yes Lack of Transportation: No Lack of Food: Never True Current Housing: I Have Housing Concerned About Future Housing: No Difficulty Paying Gas/Electric Bills: No Difficulty Paying for Meds: No Currently Unemployed: No Education: Associate Degree Difficulty w/ Childcare or Family Care: No Living arrangements: alone Additional living arrangements comments: Occupation/Education: occupation 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 Gender identity (if verbalized by the patient): Female Sexual Orientation (if Verbalized by the Patient): Straight or Heterosexual Meds Home Medications and Allergies Home Medications ?Medication ?Instructions ?Recorded ?Confirmed ?Type rosuvastatin 5 mg tablet 5 mg PO DAILY 03/10/24 07/26/25 History estradiol 1 mg tablet 0.5 mg (1/2 x 1 mg) PO DAILY #90 12/14/24 07/26/25 Rx tabs progesterone micronized 200 mg 200 mg PO QHS 90 days #90 caps 05/30/25 07/26/25 Rx capsule (Prometrium) omeprazole 20 mg capsule,delayed 20 mg PO DAILY 07/15/25 07/26/25 History release Allergies Allergy/AdvReac Type Severity Reaction Status Date / Time No Known Allergies Allergy Verified 07/15/25 14:51 Vital Signs Vital Signs - 24 hr 07/26/25 12:35 Temperature 96.9 F L Pulse Rate 72 Respiratory Rate 18 Blood Pressure 131/74 Pulse Oximetry 99 Oxygen Delivery Room Air Exam Const: General: cooperative and healthy appearing Resp: Effort & Inspection: normal respiratory effort and able to speak in complete sentences Auscultation: clear to auscultation bilaterally Cardio: Rate: regular rate Rhythm: regular rhythm GI: Inspection: normal to inspection GI Palp: No No hepatosplenomegaly present Auscultation: normal bowel sounds Rectal Exam: deferred Skin: General skin exam: normal color Psych: Appearance: grossly normal Mental Status: mental status grossly normal Assessment and Plan Assessment and plan (1) Dysphagia: Code(s): R13.10 - Dysphagia, unspecified Status: Acute Assessment and Plan: The patient is deemed a good candidate for the procedure. Consent signed. Will proceed. (2) History of colonic polyps: Code(s): Z86.0100 - Personal history of colon polyps, unspecified Status: Acute
[2025-07-26] MEDS: BENZOCAINE (*SP) 60 ML SPRAY CAN (HURRICAINE) 1 SPRAY MUCOUS MEM (13:40)
--- NOTE | 2025-07-26 13:47 | S_PTH ---
PATIENT: Aurelia Fernandez LOC: [facility] U#:[id number] AGE/SX: 59/F ROOM: RE07/26/[address]: Seymour Hodge MD : 1965 BED: DIS: 07/26/2025 SPEC #: [id number] RECD: 07/27/25 11:00 STATUS: ABY FARIA #: [id number] BRITTANIE: 07/26/25 13:[address]: Seymour Hodge DEPT: [facility] Surgical RECD BY: Cassandra Nielsen ENTERED: 07/27/25 11:01 SP TYPE: Surgical OTHR DR: Mikayla Flores, DO Tissues: A - Gastric Biopsy B - Gastric Biopsy C - Rectal Polyp Procedures: Hematoxylin and Eosin Stain Gross and Microscopic Level 4
--- NOTE | 2025-07-26 13:56 | SUR.OPER ---
EGD: ended 1348 COLON: started 5050
[2025-07-26 14:13] VITALS: BP 98/54; PULSE 69; RESP 23; O2SAT 97
[2025-07-26 14:23] VITALS: BP 111/58; PULSE 59; RESP 22; O2SAT 99
[2025-07-26 14:33] VITALS: BP 128/68; PULSE 60; RESP 18; O2SAT 100
== END 2025-07-26 15:06 | disposition home or self-care (01) ==
PROVIDERS: PCP Family Medicine; Referring Provider Family Medicine; Visit Provider Internal Medicine Gastroenterology
PROC: 0DJ08ZZ Inspection of Upper Intestinal Tract, Via Natural or Artificial Opening Endoscopic (ICD-10-PCS; CPT 45378; principal; 2025-07-26 13:30)
DX: Z12.11 Encounter for screening for malignant neoplasm of colon (principal); K62.1 Rectal polyp; K21.00 Gastro-esophageal reflux disease with esophagitis, without bleeding; K22.2 Esophageal obstruction; K44.9 Diaphragmatic hernia without obstruction or gangrene; F41.9 Anxiety disorder, unspecified; F12.90 Cannabis use, unspecified, uncomplicated; E66.01 Morbid (severe) obesity due to excess calories; Z68.41 Body mass index [BMI] 40.0-44.9, adult; Z98.890 Other specified postprocedural states; Z90.49 Acquired absence of other specified parts of digestive tract; Z80.0 Family history of malignant neoplasm of digestive organs; Z82.49 Family history of ischemic heart disease and other diseases of the circulatory system
CPT/HCPCS: 43239; 43249; 45385; 88305; C1726; J2003; J2704; J7120

== ENCOUNTER 2025-08-01 07:38 | Outpatient (CLI) | payer BC, SELFPAY ==
--- NOTE | ~2025-08-01 | MM_ITS ---
EXAMINATION: MM screening [facility] BI w irma HISTORY: Screening TECHNIQUE: Craniocaudal and mediolateral oblique 3-D tomosynthesis images were obtained and synthetic 2-D images were generated. CAD analysis was submitted and interpreted. COMPARISON: Comparison to multiple prior studies sequentially, with oldest reviewed study dated 05/05/2019. BREAST PARENCHYMAL COMPOSITION: Not dense: There are scattered areas of fibroglandular density. FINDINGS: There is no evidence of suspicious mass, calcification, or architectural distortion to suggest malignancy in either breast. There has been no suspicious interval change. IMPRESSION: 1. No mammographic evidence of malignancy. 2. Recommend routine screening mammography in one year. BI-RADS Category 1: Negative Reviewed, dictated and finalized at location B.
== END 2025-08-01 07:39 | disposition home or self-care (01) ==
LOC: MICIMG 07:38
PROVIDERS: PCP Nurse Practitioner; Visit Provider Obstetrics & Gynecology
DX: Z12.31 Encounter for screening mammogram for malignant neoplasm of breast (principal)
CPT/HCPCS: 77063; 77067